=== PATIENT | male | born 1975 | race Caucasian/White ===

== ENCOUNTER 2022-02-17 19:18 | Emergency (ER) | payer MEDICAID ==
[~2022-02-17] VITALS: Ht 177.8 cm; Wt 90.9 kg
[~2022-02-17 19:18] MED LIST: NAPR-56 PO; NO HOME MEDS; PENI500T2 PO; TRAM50TA2 PO
[2022-02-17] MEDS ORDERED: dexamethasone sod phosphate 10mg/ml inj PO STA (21:18)
[2022-02-17] MEDS ORDERED: azithromycin 250mg tablet PO ONE (21:20)
[2022-02-17] MEDS ORDERED: AZIT-21 PO (21:44)
[2022-02-17 22:03] VITALS: BP 133/74
== END 2022-02-17 22:05 | disposition home or self-care (01) ==
LOC: ER 19:19
DX: J02.9 Acute pharyngitis, unspecified (principal); R60.9 Edema, unspecified; R50.9 Fever, unspecified; R09.89 Other specified symptoms and signs involving the circulatory and respiratory systems; F17.200 Nicotine dependence, unspecified, uncomplicated; Z88.1 Allergy status to other antibiotic agents; Z88.8 Allergy status to other drugs, medicaments and biological substances; Z79.899 Other long term (current) drug therapy
CPT/HCPCS: 87081; 87880; 99283; J1100